=== PATIENT | female | born 1985 | race Caucasian/White ===

== ENCOUNTER 2017-09-04 06:41 | Emergency (ER) | payer BC, OTHER ==
[~2017-09-04] VITALS: Ht 177.8 cm; Wt 129.3 kg
[2017-09-04 07:03] VITALS: BP 151/92
== END 2017-09-04 08:42 | disposition left against medical advice (07) ==
LOC: ER 06:41
DX: H10.31 Unspecified acute conjunctivitis, right eye (principal); Z53.29 Procedure and treatment not carried out because of patient's decision for other reasons